=== PATIENT | female | born 1945 | race Caucasian/White ===

== ENCOUNTER 2017-01-06 05:19 | Day surgery (SDC) | payer OTHER ==
[~2017-01-06] VITALS: Ht 165.1 cm; Wt 85.0 kg
[~2017-01-06 05:19] MED LIST: ASPIR 8181 M1 PO; ATACAND16 MG PO; CHOLEST OFF PL450 MG PO; CRESTOR5 MG PO; FLONASE16 G1 BOTH NARES; NEXIUM40 MG PO; OCUVITE TABLET1 EACH PO; OMEGA DHA92 MG PO; SYNTHROID100 MCG PO; SYNTHROID75 MCG PO; VITAMIN D31000 UNIT PO
[2017-01-06 05:50] VITALS: BP 170/77
[2017-01-06 09:23] VITALS: BP 150/70
[2017-01-06 10:15] VITALS: BP 148/70
== END 2017-01-06 10:31 | disposition home or self-care (01) ==
LOC: SDC 05:19
DX: K64.4 Residual hemorrhoidal skin tags (principal); K62.89 Other specified diseases of anus and rectum; I10 Essential (primary) hypertension; K21.9 Gastro-esophageal reflux disease without esophagitis; Z79.82 Long term (current) use of aspirin; Z80.0 Family history of malignant neoplasm of digestive organs; Z88.0 Allergy status to penicillin
CPT/HCPCS: 88304; J0330; J0690; J1100; J2405; J2765; J3010